=== PATIENT | male | born 1975 | race Hispanic/Latino ===

== ENCOUNTER 2020-05-31 00:12 | Emergency (ER) | payer SELFPAY ==
[~2020-05-31] VITALS: Ht 166.4 cm; Wt 80.3 kg
[2020-05-31] MEDS ORDERED: ONDANSETRON HCL 4 MG ORAL DISINTEGRATING TAB PO ONE (00:30)
[2020-05-31] MEDS ORDERED: MECLIZINE HCL 12.5 MG TAB PO ONE (00:30)
[2020-05-31] MEDS ORDERED: MECLIZINE HCL 12.5 MG TAB ONE ×2 (00:34→00:35)
[2020-05-31] MEDS ORDERED: ONDANSETRON HCL 4 MG ORAL DISINTEGRATING TAB ONE (00:34)
[2020-05-31] MEDS ORDERED: ONDANSETRON ODT4 MG PO (00:38)
[2020-05-31] MEDS ORDERED: MECLIZINE HCL12.5 MG PO (00:38)
[2020-05-31 00:57] VITALS: BP 139/81
== END 2020-05-31 00:57 | disposition home or self-care (01) ==
LOC: FSED 00:15
DX: H81.10 Benign paroxysmal vertigo, unspecified ear (principal); R11.2 Nausea with vomiting, unspecified
CPT/HCPCS: 99283; J8597; Q0162